=== PATIENT | female | born 1960 ===

== ENCOUNTER → 2018-07-25 | Outpatient (REF) | payer BC ==
[2018-07-25 17:01] LABS: INFLUENZA A AMPLIFICATION NEGATIVE (NEGATIVE); INFLUENZA B AMPLIFICATION NEGATIVE (NEGATIVE)
== END ==
LOC: M LAB REF 16:17
PROVIDERS: ATTEND Physician Assistant
DX: J11.1 Influenza due to unidentified influenza virus with other respiratory manifestations (principal)